=== PATIENT | male | born 1980 | race American Indian/Alaskan Native ===

== ENCOUNTER 2017-10-21 20:05 | Emergency (ER) | payer SELFPAY ==
[2017-10-21 20:59] VITALS: BP 147/92; PULSE 87; RESP 18; TEMP 98.2; O2SAT 98
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
--- NOTE | 2017-10-22 08:20 | RAD ---
Date of service: 10/21/2017 PROCEDURE: CHEST RADIOGRAPH, 1 VIEW HISTORY: chest pain COMPARISON: None available. FINDINGS: LUNGS: The lungs are well inflated and clear. PLEURA: No pneumothorax or pleural fluid seen. CARDIOVASCULAR: Normal. OSSEOUS STRUCTURES: No significant abnormalities. VISUALIZED UPPER ABDOMEN: Normal. OTHER FINDINGS: None. IMPRESSION: No active pulmonary disease.
--- NOTE | 2017-10-22 19:45 | CARD ---
APPROVED REPORT Date of service: 10/21/2017 EKG Measurement Heart [id number] <Conclusion> Sinus rhythm with short TN Otherwise normal ECG
== END 2017-10-21 21:59 ==
LOC: C.ER 20:05
DX: S16.1XXA Strain of muscle, fascia and tendon at neck level, initial encounter (principal); S46.919A Strain of unspecified muscle, fascia and tendon at shoulder and upper arm level, unspecified arm, initial encounter; X58.XXXA Exposure to other specified factors, initial encounter; R07.9 Chest pain, unspecified; F20.9 Schizophrenia, unspecified

== ENCOUNTER 2017-10-22 10:29 | Emergency (ER) | payer SELFPAY ==
[2017-10-22 10:50] VITALS: BP 150/114; PULSE 77; RESP 18; TEMP 98.5; O2SAT 96
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
--- NOTE | 2017-10-22 12:07 | RAD ---
Date of service: 10/22/2017 HISTORY: cough COMPARISON: 10/21/2017 TECHNIQUE: Chest PA and lateral FINDINGS: LUNGS: No active pulmonary disease. PLEURA: No significant pleural effusion identified. No pneumothorax apparent. CARDIOVASCULAR: Normal. OSSEOUS STRUCTURES: No significant abnormalities. VISUALIZED UPPER ABDOMEN: Normal. OTHER FINDINGS: None. IMPRESSION: No active disease.
--- NOTE | 2017-10-22 12:07 | RAD ---
Date of service: 10/22/2017 PROCEDURE: Cervical Spine Radiographs. HISTORY: Pain. COMPARISON: None. FINDINGS: BONES: Vertebral bodies maintained in height. There is mild reversal of the normal lordotic curvature indicating possible muscular spasm. The atlantoaxial articulation and odontoid process are intact. Normal alignment is maintained. DISC SPACES: Normal. SOFT TISSUES: Normal. No prevertebral soft tissue swelling. OTHER FINDINGS: None. IMPRESSION: Possible muscular spasm. Otherwise unremarkable examination.
== END 2017-10-22 13:03 ==
LOC: C.ER 10:29
DX: M79.1 Myalgia (principal); M54.9 Dorsalgia, unspecified